=== PATIENT | male | born 1965 ===

== ENCOUNTER 2023-04-04 21:38 | Emergency (ER) | payer OTHER ==
[~2023-04-04] VITALS: Ht 167.6 cm; Wt 68.0 kg
[2023-04-04 22:41] LABS: BASOPHILS % 0.9 % (0.0-2.0); EOSINOPHILS % 4.1 % (0.0-5.0); HEMATOCRIT. 41.5 % (42.0-52.0); LYMPHOCYTES % 39.1 % (20.0-50.0); MEAN CORPUSCULAR HEMOGLOBIN 30.8 pg (28.0-32.0); MEAN CORPUSCULAR VOLUME 91.5 fL (80.0-94.0); MEAN PLATELET VOLUME 6.8 fl (7.4-10.4); NEUTROPHILS % 42.9 % (40.0-76.0); PLATELET 307 x1000/uL (130-400); RED BLOOD CELL COUNT 4.53 mill/uL (4.7-6.1); RED CELL DISTRIBUTION WIDTH 12.9 % (11.6-14.6)
[2023-04-04 22:49] LABS: CHLORIDE 107 mEq/L (98-107)
[2023-04-05 00:52] LABS: CLARITY URINE CLEAR (CLEAR); COLOR URINE DARK YELLOW (YELLOW); KETONES URINE NEGATIVE (NEGATIVE); LEUKOCYTE ESTERASE URINE NEGATIVE (NEGATIVE); NITRITE URINE NEGATIVE (NEGATIVE); OCCULT BLOOD URINE NEGATIVE (NEGATIVE); PROTEIN URINE NEGATIVE (NEGATIVE); SPECIFIC GRAVITY URINE 1.025 (1.005-1.030)
[2023-04-05] MEDS ORDERED: HYDROCODONE/ACETAMINOPHEN 10/325MG TABLET PO ONE (03:30)
[2023-04-05] MEDS ORDERED: HYDR-4001 MT (04:54)
[2023-04-05] MEDS ORDERED: DOCU-138 MT (04:54)
[2023-04-05 05:03] VITALS: BP 142/76
== END 2023-04-05 05:04 | disposition home or self-care (01) ==
LOC: ER 21:38
DX: R10.30 Lower abdominal pain, unspecified (principal); E11.9 Type 2 diabetes mellitus without complications
CPT/HCPCS: 36415; 74176; 80053; 81003; 85025; 99284